=== PATIENT | male | born 1995 | race Caucasian/White ===

== ENCOUNTER 2022-09-08 19:59 | Emergency (ER) | payer MEDICAID, SELFPAY ==
[2022-09-08 20:07] VITALS: BP 124/83; PULSE 96; RESP 16; TEMP 37; O2SAT 94
--- NOTE | 2022-09-08 20:23 | ED.GENADUL_ITS ---
Discharge Plan Discharge Details Chief Complaint: PsychEval Primary Care Provider: Unknown,Unknown ED Provider: Verónica Beltran Home Meds and New Rx's Prescriptions: No Action duloxetine 30 mg capsule,delayed release(DR/EC) 30 mg PO DAILY Label Comments: TAKE 1 CAPSULE BY MOUTH ONCE DAILY ALONG WITH A 60MG CAP FOR A TOTAL DAILY DOSE OF 90MG duloxetine 60 mg capsule,delayed release(DR/EC) 60 mg PO DAILY Label Comments: TAKE 1 CAPSULE BY MOUTH ONCE DAILY estradiol 2 mg tablet 7 mg PO DAILY Label Comments: TAKE 3 & 1/2 (THREE & ONE-HALF) TABLETS BY MOUTH ONCE DAILY spironolactone 50 mg tablet 50 mg PO DAILY progesterone micronized 100 mg capsule 100 mg PO DAILY Label Comments: TAKE 1 CAPSULE BY MOUTH ONCE DAILY Medical Decision Making 09/08/222019 -- 27-year-old male who identifies as female with longstanding history of anxiety and depression presents for worsening depression over the last few months, worse since last night since being evicted from apartment now having thoughts of suicide with a plan to drown herself. Vitals within normal limits. Patient appears somewhat anxious but nontoxic. No acute findings on exam. Patient medically cleared per smart medical clearance form. We will call mental health for evaluation. 2144 -- Pt evaluated by Rios with [facility] and patient would like [facility] inpatient hospitalization. Per Rios regarding latest update from [place], there were multiple beds available in the LGBTQ unit and hopeful that she could potentially be transferred tomorrow. Therefore we will hold patient in the emergency department while awaiting placement. If patient volume increases in the emergency department, will admit to the floor while awaiting placement. Per discussion with Rios, to prevent any delays in transfer, recommend screening labs. Labs reviewed. Potassium 3.3, will replete. COVID-negative. Remainder of labs unremarkable. 09/09/22 0800 -- no issues overnight. Case endorsed to Dr. Lomax to continue to monitor while awaiting placement. TSH added this morning and pending. Medical Records Medical records reviewed: Yes I reviewed the patient's medical records. HPI General Mode of arrival: ambulatory . Date/Time Provider Initiated Documentation: 09/08/22 20:00 . Limitations to Documentation: no limitations . Information obtained by: patient . HPI Narrative: Patient is a 27-year-old male who identifies as female presents for depression for 10 years, getting progressively worse since the break-up with her girlfriend a few months ago, and much worse since last night since being evicted from her apartment. Patient states she was living in [place] up until 2 years ago and then for the past 2 years has been living in an apartment with her parents. She states it is difficult living with her mother because she can be controlling. She states she stayed in a motel with her parents last night and for the first time had thoughts of suicide with a plan. Patient states she has felt depressed and suicidal in the past but has never had a plan. She states she would drown myself in the bathtub . Patient states she has been taking her medications as prescribed but did not take her medications last night due due to the stress of being evicted. She denies any alcohol or drug use. She denies any homicidal ideation. She states she has a long history of insomnia for which she takes medications as needed. Patient states she has prescribed estradiol, progesterone and spironolactone by her breakfast host at [facility]. She states she has prescribed her duloxetine by a provider at [facility]. Related Data Home Medications Medication Instructions Recorded Confirmed duloxetine 30 mg capsule,delayed 30 mg PO DAILY 09/08/22 09/08/22 release duloxetine 60 mg capsule,delayed 60 mg PO DAILY 09/08/22 09/08/22 release estradiol 2 mg tablet 7 mg PO DAILY 09/08/22 09/08/22 progesterone micronized 100 mg 100 mg PO DAILY 09/08/22 09/08/22 capsule spironolactone 50 mg tablet 50 mg PO DAILY 09/08/22 09/08/22 Allergies Allergy/AdvReac Type Severity Reaction Status Date / Time citric acid Allergy Uncoded 09/08/22 20:25 General Stated Complaint: PsychEval LORAINE: 2 Review of Systems All systems reviewed & are unremarkable except as noted in HPI and below Constitutional Constitutional: Reports as per HPI, Denies chills and Denies fever(s) Eyes Eyes: Denies blurry vision ENT Ears, Nose, Mouth, and Throat: Denies dizziness, Denies sore throat and Denies throat swelling Cardiovascular Cardiovascular: Denies chest pain and Denies dyspnea Respiratory Respiratory: Denies cough and Denies dyspnea Gastrointestinal Gastrointestinal: Denies abdominal pain, Denies diarrhea and Denies vomiting Genitourinary Genitourinary: Denies hematuria and Denies dysuria Musculoskeletal Musculoskeletal: Denies back pain and Denies numbness Integumentary/Breasts Skin/Breast: Denies lesions and Denies rash Neurologic Neurologic: Denies dizziness, Denies localized weakness and Denies numbness Allergic/Immunologic Allergic/Immunologic: Denies throat swelling [facility] Medical History (Updated 09/08/22 @ 21:23 by Verónica Beltran DO) Anxiety Depression Insomnia Transgender man on hormone therapy Surgical History (Updated 09/08/22 @ 21:23 by Verónica Beltran DO) History of hernia repair Social History Smoking/Tobacco Use Status: Never Smoking risk assessment performed?: Yes Alcohol Intake: never Substance use type: does not use Exam Const General: cooperative, healthy appearing and no acute distress HENMT Head: normal to inspection Face and sinus: normal facial exam Eyes General: appearance normal, both eyes and all related structures Pupils: PERRL EOM: EOM intact bilaterally Neck Neck: normal visual inspection and No submandibular swelling Lymphatic: no lymphadenopathy noted Chest Chest: normal inspection of the chest and no tenderness Resp Effort & Inspection: normal respiratory effort and able to speak in complete sentences Auscultation: clear to auscultation bilaterally Cardio Rate: regular rate Rhythm: regular rhythm GI Inspection: normal to inspection Palpation: soft, not firm, not rigid and nontender Auscultation: normal bowel sounds Male General Exam: Yes normal external exam Back/Spine/Pelvis Thoracic/Lumbar Spine: thoracic and lumbar spine normal to inspection Pelvis: no pain with anterior-posterior compression Skin General skin exam: no rashes or lesions noted Neuro General: patient alert, patient awake and patient oriented x3 Cognition: normal cognition Speech: speech normal Motor: muscle tone normal throughout Sensory Exam: no sensory deficits noted Extrem General: normal to inspection, full ROM, capillary refill normal, no calf tenderness bilaterally and no edema Psych Appearance: grossly normal Mental Status: mental status grossly normal Speech and Movement: speech and movement normal Affect: normal affect Course Vital Signs Vital signs: Respiratory Effort 09/08/22 20:07 Pain Level 2 09/08/22 20:07
[2022-09-08 20:42] LABS: Bilirubin Negative (Negative); Blood Negative (Negative); Clarity Sl Cloudy (Clear); Glucose Negative (Negative); Ketones Negative (Negative); Leukocyte Esterase Negative (Negative); Nitrite Negative (Negative); Specific Gravity >= 1.030 (1.005-1.025); Urobilinogen 0.2 EU/dL (Up TO 0.2); pH 5.5 (5-8)
[2022-09-08 20:47] LABS: Bacteria Negative HPF (Negative); C & S Indicated? No; Casts Negative LPF (Negative); Crystals Negative HPF (Negative); Epithelial Cells Few HPF (Negative); Mucus Trace (Negative); RBC 0-2 HPF (0-2); WBC 0-2 HPF (0-5)
[2022-09-08 20:58] LABS: *AMPHETAMINES SCREEN URINE Negative (Negative); *BARBITURATES SCREEN URINE Negative (Negative); *BENZODIAZEPINES SCREEN URINE Negative (Negative); Cannabinoids THC Negative (Negative); Cocaine Screen,Urine Negative (Negative); METHADONE URINE SCREEN Negative (Negative); OPIATES URINE SCREEN Negative (Negative)
[2022-09-08 21:00] LABS: Tricyclic Antidepressants Negative (Negative)
--- NOTE | 2022-09-08 21:24 | PDOC.MHCN ---
Date of service: 09/08/22 Time of Service: 21:24 PHQ-9 Over the last 2 weeks, how often have you been bothered by any of the following problems? 1. Little interest or pleasure in doing things: nearly every day 2. Feeling down, depressed, or hopeless: nearly every day 3. Trouble falling or staying asleep, or sleeping too much: nearly every day 4. Feeling tired or having little energy: nearly every day 5. Poor appetite or overeating: nearly every day 6. Feeling bad about yourself - or that you are a failure or have let yourself and your family down: nearly every day 7. Trouble concentrating on things, such as reading the newspaper or watching television: more than half the days 8. Moving or speaking so slowly that other people could have noticed? - Or the opposite - being so fidgety or restless that you have been moving around a lot more than usual: not at all 9. Thoughts that you would be better off or of hurting yourself in some way: several days Total score: 21 If you checked off any problems, how difficult have these problems made it for you to do your work, take care of things at home, or get along with other people?: extremely difficult PHQ-9 Results: Positive Source: Developed by Drs. Eduardo Winston, Mayte Flores, Armando Erazo and colleagues, with an educational kellen from [employer]. Suicide Severity Rate CSSRS Have you wished you were or wished you could go to sleep and not wake up?: Yes Have you actually had any thoughts of killing yourself?: Yes CSSRS2 Have you been thinking about how you might do this?: Yes Have you had these thoughts and had some intention of acting on them?: Yes Have you started to work out or worked out the details of how to kill yourself? Do you intend to carry out this plan?: Yes CSSRS3 Have you ever done anything, started to do anything or prepared to do anything to end your life?: No CSSRS4 Was this within the past three months?: No Screening Score Total Score: 4 Screening: Positive Mental Health Emergency Note Release [facility] release signed:: No Reason for Visit SI/Housing issue/Relationship and family conflict. In the last 2 weeks has the pt presented for ES prior to today?: No Client Information Client is: New Well Housed: No,status: Homeless Unstable housing Non Suicidal Self Injury Current: No History: No Safety Risk/Harm to Self or Others Current Ideation to Harm Self or Others: Yes to self. Intent: yes, has intent. Plan: yes,has a plan. Risk: Does risk to harm exist?: yes. Access to means: No. Risk: Moderate Risk Duty to warn indicated: No Asssessment/Mental Status Appearance: Unremarkable Attitude: Cooperative Behavior: Unremarkable Speech: Normal Affect: Normal Mood: Stressed Thought process: Unremarkable Hallucinations: No Delusions: No Attention: Unremarkable Perception: Not impaired Orientation: Fully orientated Memory: Intact Insight: Fair Judgement: Fair Neurovegetative Symptoms Sleep: Decrease Appetitie: Decrease Interests: Decrease Energy: Decrease Substance Use: Do you use nicotine?: No Have you used substances in the last 7 days?: No Additional Issues: Assaultive/Threatening Behavior: No Medical Concerns: No Client engaged in active self harm w/weapon: No Threatening to run away: No Child reported abuse/neglect: No Voluntarily presenting for services: Yes Domestic violence is a concern: No Extreme Psychosis or extreme behavior is present: No Impression Goyo presented to the ED this afternoon due to intense SI with a plan to drown themself. Client's father & friend had called 911 earlier leading to a police reponse at the pt's residence, client was transported to the hospital and voluntarily presented for a crisis screening. This client reported poor sleep as a recurring issue, as well as a poor diet?if eating at all. Client's affectivity was flat througout the entire assessment, with no discernable changes in body language/tone contextually as the assessment progressed. Client was previously hospitalized once, while they haven't actively tried to take her life per their report; this client is at moderate risk for suicide as their relationship recently ended and she was also evicted from her residence this past weekend. Client is actively suicidal and does not feel they would be safe if they return to the community without seeking a higher level of care. Resources Reosurces reviewed and given:: Crisis Bed and [facility] Plan/Disposition Recommended Disposition: Hospitalization No. Person reported agreement to plan: Yes Reports/communication Outcome discussed with: ED/Personnel
[2022-09-08 22:16] LABS: Source Nasal/Nares
[2022-09-08 22:18] LABS: Abs Immature Grans 0.01 10^3/uL (0.0-0.06); Absolute Basophil Count 0.07 10^3/uL (0.0-0.2); Absolute Lymphocyte Count 2.46 10^3/uL (1.2-3.4); Absolute Monocyte Count 0.71 10^3/uL (0.1-0.8); Absolute Neutrophil Count 2.68 10^3/uL (1.2-6.7); Basophils % 1.1; Eosinophils % 3.3; HGB 13.2 g/dL (13.5-17.5); Immature Grans % 0.2; Lymphocytes % 40.1; MCH 32.1 pg (27.0-33.0); MCHC 33.8 % (32.0-36.0); MCV 95 fL (80-95); MPV 9.3 fL (8.0-11.0); Monocytes % 11.6; Neutrophils % 43.7; Platelet Count 270 10^3/uL (130-400); RBC 4.11 10^6/uL (4.36-5.78); RDW 11.9 % (11.8-14.1); RDW-SD 42.2 fL; WBC 6.13 10^3/uL (4.4-10.8)
[2022-09-08 22:30] LABS: ETHANOL BLOOD 3.2 mg/dL (<10)
[2022-09-08 22:34] LABS: ALT 11 U/L (16-63); AST 15 U/L (15-37); Albumin 3.4 g/dL (3.4-5.0); Alkaline Phosphatase 53 U/L (46-116); Anion Gap 7.1 mmol/L (3-11); BUN 17 mg/dL (7-18); Bilirubin, Total 0.3 mg/dL (0.2-1.0); CO2 26.9 mmol/L (21.0-32.0); CREATININE 0.8 mg/dL (0.70-1.30); Calcium 8.8 mg/dL (8.5-10.1); Chloride 102 mmol/L (98-107); Estimated GFR 123.63 (mL/min/1.73m2); Glucose 93 mg/dL (74-106); Potassium 3.3 mmol/L (3.5-5.1); Sodium 136 mmol/L (136-145); Total Protein 6.5 g/dL (6.4-8.2)
[2022-09-08 22:57] LABS: COVID-19 PCR Negative (Negative)
--- NOTE | 2022-09-08 23:21 | NUR.NOTE ---
Nursing Note: went to give pt potassium po, pt refused at this time.
[2022-09-08] MEDS: Potassium Chloride 20 MEQ TABCR (23:50)
--- NOTE | 2022-09-09 08:18 | NUR.NOTE ---
Nursing Note: Clayton Renny [phone]
[2022-09-09] MEDS: DULoxetine 30 MG CAP 90 MG PO (09:15)
[2022-09-09] MEDS: Estradiol 1 MG TAB 7 MG PO (09:15)
[2022-09-09] MEDS: Spironolactone 50 MG TAB PO (09:15)
[2022-09-09 09:54] LABS: TSH (W/Ref FT4) 2.79 uIU/mL (0.36-3.74)
--- NOTE | 2022-09-09 10:00 | CMSP_ITS ---
- If Service Date Differs Date of service: 09/09/22 Time of Service: 10:00 Care Management Safety Plan Status: Voluntary - Reason for Wait Reason for Wait: Inpatient Admission VOLUNTARY FOR INPATIENT PSYCHIATRIC STABILIZATION. Patient is appropriate in all interactions since arriving at [facility]; Pt has demonstrated appropriate coping and communication skills, has articulated his or her needs and concerns and is fully engaged during staff interactions. Per ED documentation: Fredy is a 27-year-old male who identifies as female with longstanding history of anxiety and depression presents for worsening depression over the last few months, worse since last night since being evicted from apartment now having thoughts of suicide with a plan to drown herself. Per [facility], [facility] have bed availability is reviewing and with potential for admission today. If there is a delay is transfer will consider admission to the floor, while awaiting inpatient psych placement. Safety plan has been established with patient, and care team, to adhere to patient goals, identify restrictions based on behavioral status, address nutrition, and determine allowed personal belongings, tools for hygiene and personal care. Determine level of activity including ambulation, level of supervision, visitors, and determine privileges based on behaviors and level of engagement by pt. SAFETY PLAN: 1. Will remain on suicide precautions. In Paper Clothes 2. Will remain in room under direct supervision of one-on-one staff at all times provided by [employer]; REZA, DIRECTOR TELEVISION NEWS cold type composing machine operator. 3. May have paper cups, plates, finger foods as well as a cardboard spoon with which to eat meals. 4. Follow [facility] Management of the Admitted Behavioral Health Patient policy. 5. Comfort bath system only, shower permitted with escort at RN discretion. 6. No personal belongings-soft items permitted at RN discretion. 7. Visitors-none at this time. 8. Activities: soft cart items approved per RN discretion. 9. Bathroom privileges with escort in the ED, available in room without limitation on M/S. 10. Phone: contact limited to family at this time, via cordless phone at RN discretion. 11. Due to VOLUNTARY status, if patient wishes to leave [facility], staff will contact [facility] Crisis Screener ([phone]) and On-Call Vendor Manager ([phone]) as soon as possible. In the event of elopement, notify [facility] Police ([phone]). Patient is currently voluntarily at [facility] and seeking inpatient admission when a bed becomes available. [facility] [employer] Truck Driver will continue seeking placement. Please contact the Senior Developer Vendor Manager ([phone]) and [facility] Concrete Mixing Truck Driver ([phone]) for any needed changes in the Safety Plan. Safety plan has been provided to interdepartmental care team.
--- NOTE | 2022-09-09 13:37 | MHPN_ITS ---
Date of service: 09/09/22 Time of Service: 11:00 PHQ-9 Over the last 2 weeks, how often have you been bothered by any of the following problems? 1. Little interest or pleasure in doing things: nearly every day 2. Feeling down, depressed, or hopeless: nearly every day 3. Trouble falling or staying asleep, or sleeping too much: nearly every day 4. Feeling tired or having little energy: nearly every day 5. Poor appetite or overeating: nearly every day 6. Feeling bad about yourself - or that you are a failure or have let yourself and your family down: nearly every day 7. Trouble concentrating on things, such as reading the newspaper or watching television: more than half the days 8. Moving or speaking so slowly that other people could have noticed? - Or the opposite - being so fidgety or restless that you have been moving around a lot more than usual: not at all 9. Thoughts that you would be better off or of hurting yourself in some way: several days Total score: 21 If you checked off any problems, how difficult have these problems made it for you to do your work, take care of things at home, or get along with other people?: extremely difficult PHQ-9 Results: Positive Source: Developed by Drs. Eduardo Winston, Mayte Flores, Armando Erazo and colleagues, with an educational kellen from [employer]. Suicide Severity Rate CSSRS Have you wished you were or wished you could go to sleep and not wake up?: Yes Have you actually had any thoughts of killing yourself?: Yes CSSRS2 Have you been thinking about how you might do this?: Yes Have you had these thoughts and had some intention of acting on them?: Yes Have you started to work out or worked out the details of how to kill yourself? Do you intend to carry out this plan?: Yes CSSRS3 Have you ever done anything, started to do anything or prepared to do anything to end your life?: No CSSRS4 Was this within the past three months?: No Screening Score Total Score: 4 Screening: Positive Mental Health Emergency Note Release [facility] release signed:: Yes Reason for Visit Client presented to [facility] ED on 09/08/22 due to increased suicidal ideations with plan to drown self in hotel room bathroom. Client's family was evicted on 09/07/22 and are currently staying in a motel provided by [employer] and [employer]. Client is seen today via zoom for re-assessment at [facility] ED while on voluntary status. In the last 2 weeks has the pt presented for ES prior to today?: No Client Information Client is: New Well Housed: No,status: Homeless Unstable housing Non Suicidal Self Injury Current: No History: yes, Client reports hx of NSSI, however would not elaborate when asked by this specification writer. Safety Risk/Harm to Self or Others Current Ideation to Harm Self or Others: Yes to self. (Client currently endorsing persistent SI with intent 04/13 and plan to drown self in bathtub. ) Intent: yes, has intent. Plan: yes,has a plan. History of suicide attempt: No history of suicide attempt reported Risk: Does risk to harm exist?: yes. Access to means: No. Risk: Moderate Risk Duty to warn indicated: No Asssessment/Mental Status Appearance: Disheveled and Poor hygiene Attitude: Cooperative Behavior: Unremarkable Speech: Normal Affect: Flat Mood: Stressed and Depressed Thought process: Unremarkable Hallucinations: No Delusions: No Attention: Unremarkable Perception: Not impaired Orientation: Fully orientated Memory: Intact Insight: Fair Judgement: Fair Neurovegetative Symptoms Sleep: Decrease Appetitie: Decrease Interests: Decrease Energy: Decrease Libido: Not applicable Substance Use: Do you use nicotine?: No Have you used substances in the last 7 days?: No Additional Issues: Assaultive/Threatening Behavior: No Medical Concerns: No Client engaged in active self harm w/weapon: No Threatening to run away: No Child reported abuse/neglect: No Voluntarily presenting for services: Yes Domestic violence is a concern: No Extreme Psychosis or extreme behavior is present: No Impression Client is a 27 y/o male that is transitioning to female and identifies as the name Dariela. Client and clients family is currently homeless after being evicted from their apartment on 09/07 and is currently staying in a motel provided by [employer] and [employer]. Client also reports that about 2 years ago they were deported from [place] after a situation with their , however when asked client would not elaborate. Client presents with symptoms most congruent to major depressive disorder as evidenced by self-report, decrease in things that they used to find enjoyment in, decrease in energy, and disorganized sleep and eating patterns. Client reports that they sleep during the day approximately 6 hours of interrupted sleep as they wake up frequently. Client reports that their appetite has diminished only eating 1 meal a day. Client reports that they have always had fleeting suicidal ideation's, however reports due to life changes the suicidal ideation's have increased and reports that they have a plan to drown themselves in the bathtub with intent 04/13. Client reports to this specification writer that they only currently have one coping skill that is beneficial which is watching YouTube. Client would benefit from inpatient treatment to decrease suicidal ideation's, learn coping skills, and medication management. Resources Reosurces reviewed and given:: [facility] Plan/Disposition Recommended Disposition: Hospitalization (Referrals faxed to [facility], [facility], , and [facility]. ) facilities contacted. Plan: Client will remain at [facility] ED on voluntary status pending admission to an inpatient facility. Referrals have been faxed to [facility], [facility], , and [facility]- there is currently not bed availability at [facility], [facility], and . [facility] is currently reviewing clients referral. Person reported agreement to plan: Yes Facilities contacted if Applicable [facility] Not accepted, (Reviewing referral) No bed available [facility] Not accepted, No bed available [facility] Not accepted, Only accepting in house referrals, [facility] Not accepted, No bed available Reports/communication Outcome discussed with: ED/Personnel (Verbal passover given to ED provider Dr. Lomax ) Final Disposition/Discharge Transportation Checklist completed and faxed: No
--- NOTE | 2022-09-09 14:20 | W.PM.HP.N ---
Date of service: 09/09/22 Time of Service: 14:21 Assessment and Plan Assessment and plan (1) Depression with suicidal ideation: Status: Acute Assessment and plan: followed by mental health with plan for inpatient psychiatric management. was medically cleared in the ED and remains medically stable with no behavioral issues. continue home medications continue safety plan instituted by mental health. discussed with DR Randhawa History of Present Illness History of Present Illness Chief Complaint: suicidal ideation Narrative: on a voluntary hold for suicidal ideation. medically cleared in the ED. plan was to drown herself in a bathtub. homeless. no behavioral issues in the ED and no inpatient bed yet available so request for move to transition unit while awaiting discharge to inpatient facility. remains medically stable, eating and drinking well with no behavioral issues. hand off and acceptance under hospitalist services. discussed with Dr Randhawa. Review of Systems All systems reviewed & are unremarkable except as noted in HPI and below Psychiatric Psychiatric: Reports suicidal ideation PFSH All Active Problems (Updated 09/09/22 @ 14:24 by Madeline Strong NP) Depression with suicidal ideation (Acute) Depression (Chronic) Medical History (Updated 09/09/22 @ 14:24 by Madeline Strong NP) Anxiety Depression Insomnia Transgender man on hormone therapy Surgical History (Updated 09/08/22 @ 21:23 by Verónica Beltran DO) History of hernia repair Social History Smoking/Tobacco Use Status: Never Smoking risk assessment performed?: Yes Alcohol Intake: never Substance use type: does not use Meds Allergies and Home Medications Allergies Allergy/AdvReac Type Severity Reaction Status Date / Time citric acid Allergy Uncoded 09/08/22 20:25 Home Medications Medication Instructions Recorded Confirmed Type duloxetine 30 mg capsule,delayed 30 mg PO DAILY 09/08/22 09/08/22 History release duloxetine 60 mg capsule,delayed 60 mg PO DAILY 09/08/22 09/08/22 History release estradiol 2 mg tablet 7 mg PO DAILY 09/08/22 09/08/22 History progesterone micronized 100 mg 100 mg PO DAILY 09/08/22 09/08/22 History capsule spironolactone 50 mg tablet 50 mg PO DAILY 09/08/22 09/08/22 History Results Labs Result diagrams: 09/08/22 22:10 09/08/22 22:10 Labs: Laboratory Results - last 24 hr 09/08/22 09/08/2223 20:35 20:35 22:10 WBC RBC Hgb Hct MCV MCH MCHC RDW Plt Count MPV Immature Gran % Neutrophils % Lymphocytes % Monocytes % Eosinophils % Basophils % Nucleated RBC % Absolute Neutrophils Absolute Lymphocytes Absolute Monocytes Absolute Eosinophils Absolute Basophils Sodium Potassium Chloride Carbon Dioxide Anion Gap BUN Creatinine Est GFR (CKD-EPI 2020) Glucose Calcium Total Bilirubin AST ALT Alkaline Phosphatase Total Protein Albumin TSH Urine Color Yellow Urine Clarity Sl Cloudy Urine pH 5.5 Ur Specific [place] >= 1.030 H Urine Protein Trace H Urine Ketones Negative Urine Blood Negative Urine Nitrite Negative Urine Bilirubin Negative Urine Urobilinogen 0.2 Ur Leukocyte Esterase Negative Urine RBC 0-2 Urine WBC 0-2 Ur Epithelial Cells Few Urine Crystals Negative Urine Bacteria Negative Urine Casts Negative Urine Mucus Trace Ur Culture Indicated? No Urine Glucose Negative Urine Opiates Screen Negative Urine Methadone Screen Negative Ur Barbiturates Screen Negative Ur Tricyclics Screen Negative Ur Amphetamines Screen Negative U Benzodiazepines Scrn Negative Urine Cocaine Screen Negative Ur THC Screen Negative Ethyl Alcohol COVID-19 Source Nasal/Nares SARS-CoV-2 (PCR) Negative 09/08/22 09/08/22 09/08/22 22:10 22:10 22:10 WBC 6.13 RBC 4.11 L Hgb 13.2 L Hct 39.0 L MCV 95 MCH 32.1 MCHC 33.8 RDW 11.9 Plt Count 270 MPV 9.3 Immature Gran % 0.2 Neutrophils % 43.7 Lymphocytes % 40.1 Monocytes % 11.6 Eosinophils % 3.3 Basophils % 1.1 Nucleated RBC % 0.0 Absolute Neutrophils 2.68 Absolute Lymphocytes 2.46 Absolute Monocytes 0.71 Absolute Eosinophils 0.20 Absolute Basophils 0.07 Sodium 136 Potassium 3.3 L Chloride 102 Carbon Dioxide 26.9 Anion Gap 7.1 BUN 17 Creatinine 0.8 Est GFR (CKD-EPI 2020) 123.63 Glucose 93 Calcium 8.8 Total Bilirubin 0.3 AST 15 ALT 11 L Alkaline Phosphatase 53 Total Protein 6.5 Albumin 3.4 TSH Urine Color Urine Clarity Urine pH Ur Specific [place] Urine Protein Urine Ketones Urine Blood Urine Nitrite Urine Bilirubin Urine Urobilinogen Ur Leukocyte Esterase Urine RBC Urine WBC Ur Epithelial Cells Urine Crystals Urine Bacteria Urine Casts Urine Mucus Ur Culture Indicated? Urine Glucose Urine Opiates Screen Urine Methadone Screen Ur Barbiturates Screen Ur Tricyclics Screen Ur Amphetamines Screen U Benzodiazepines Scrn Urine Cocaine Screen Ur THC Screen Ethyl Alcohol 3.2 COVID-19 Source SARS-CoV-2 (PCR) 09/08/22 22:10 WBC RBC Hgb Hct MCV MCH MCHC RDW Plt Count MPV Immature Gran % Neutrophils % Lymphocytes % Monocytes % Eosinophils % Basophils % Nucleated RBC % Absolute Neutrophils Absolute Lymphocytes Absolute Monocytes Absolute Eosinophils Absolute Basophils Sodium Potassium Chloride Carbon Dioxide Anion Gap BUN Creatinine Est GFR (CKD-EPI 2020) Glucose Calcium Total Bilirubin AST ALT Alkaline Phosphatase Total Protein Albumin TSH 2.79 Urine Color Urine Clarity Urine pH Ur Specific [place] Urine Protein Urine Ketones Urine Blood Urine Nitrite Urine Bilirubin Urine Urobilinogen Ur Leukocyte Esterase Urine RBC Urine WBC Ur Epithelial Cells Urine Crystals Urine Bacteria Urine Casts Urine Mucus Ur Culture Indicated? Urine Glucose Urine Opiates Screen Urine Methadone Screen Ur Barbiturates Screen Ur Tricyclics Screen Ur Amphetamines Screen U Benzodiazepines Scrn Urine Cocaine Screen Ur THC Screen Ethyl Alcohol COVID-19 Source SARS-CoV-2 (PCR) Last Vital Signs Temp 37.0 C 09/08/22 20:07 Pulse 96 H 09/08/22 20:07 Resp 16 09/08/22 20:07 BP 124/83 09/08/22 20:07 Pulse Ox 94 09/08/22 20:07 Time Spent Time spent with Patient: <40 minutes Time was spent: preparing to see the patient(eg.review tests), obtaining and/or reviewing separately otained hiistory, ordering medications,tests, procedures and indepentently interpreting results
--- NOTE | 2022-09-09 14:22 | ED.PROG_ITS ---
Date of service: 09/09/22 Time of Service: 14:22 Medical Decision Making Patient stable throughout the day. No interventions needed. Still pending placement. Will admit to [facility] [place]. Discussed the case with the hospitalist. I have extensively reviewed the treatment plan with the patient. I have addressed all patient concerns at this time. I have also discussed the plan with the admitting physician and they agree with the current assessment and plan and have agreed to assume responsibility for the patient. All parties demonstrate verbal understanding and agreement with our assessment and plan at this time. The documentation in this chart was dictated using [employer] dictation software. Please excuse any dictation errors. Discharge Plan Disposition Patient Disposition: Admit to [facility] Condition: Good Discharge Details Chief Complaint: PsychEval Clinical Impression: Depression Primary Care Provider: Unknown,Unknown ED Provider: Matteo Lomax Home Meds and New Rx's Prescriptions: No Action duloxetine 30 mg capsule,delayed release(DR/EC) 30 mg PO DAILY Label Comments: TAKE 1 CAPSULE BY MOUTH ONCE DAILY ALONG WITH A 60MG CAP FOR A TOTAL DAILY DOSE OF 90MG duloxetine 60 mg capsule,delayed release(DR/EC) 60 mg PO DAILY Label Comments: TAKE 1 CAPSULE BY MOUTH ONCE DAILY estradiol 2 mg tablet 7 mg PO DAILY Label Comments: TAKE 3 & 1/2 (THREE & ONE-HALF) TABLETS BY MOUTH ONCE DAILY spironolactone 50 mg tablet 50 mg PO DAILY progesterone micronized 100 mg capsule 100 mg PO DAILY Label Comments: TAKE 1 CAPSULE BY MOUTH ONCE DAILY
--- NOTE | 2022-09-09 15:16 | NUR.NOTE ---
Nursing Note: nurse to nurse report given to [employer] [place].
--- NOTE | 2022-09-09 16:01 | ED.PROG_ITS ---
Date of service: 09/09/22 Time of Service: 16:01 Medical Decision Making pt stable, calm and cooperative, [facility] Sign Out Sign Out Data: Sign Out Comment: Pending call for Dr. Young Last updated by Matteo Lomax DO at 09/09/22 14:58 Discharge Plan Disposition Specific Psychiatric Facility: [facility] Condition: Good Condition: Stable Discharge Details Chief Complaint: PsychEval Clinical Impression: Depression Primary Care Provider: Unknown,Unknown ED Provider: Lenin Damon Home Meds and New Rx's Prescriptions: No Action duloxetine 30 mg capsule,delayed release(DR/EC) 30 mg PO DAILY Label Comments: TAKE 1 CAPSULE BY MOUTH ONCE DAILY ALONG WITH A 60MG CAP FOR A TOTAL DAILY DOSE OF 90MG duloxetine 60 mg capsule,delayed release(DR/EC) 60 mg PO DAILY Label Comments: TAKE 1 CAPSULE BY MOUTH ONCE DAILY estradiol 2 mg tablet 7 mg PO DAILY Label Comments: TAKE 3 & 1/2 (THREE & ONE-HALF) TABLETS BY MOUTH ONCE DAILY spironolactone 50 mg tablet 50 mg PO DAILY progesterone micronized 100 mg capsule 100 mg PO DAILY Label Comments: TAKE 1 CAPSULE BY MOUTH ONCE DAILY
--- NOTE | 2022-09-11 10:29 | NUR.NOTE ---
Nursing Note: Father called asking where the patient was transferred to. Initially could not find the HIPPA and told him that we could not release information to him. After hanging up with him, I looked further and found a HIPPA form with his name on it. I called him back, apologized, and told him that she went to [facility].
== END 2022-09-09 17:58 ==
PROVIDERS: Physician Assistant; Emergency Provider Emergency Medicine
DX: F32.A Depression, unspecified (principal)
CPT/HCPCS: 80053; 80307; 87635; 99283; 99285; 80320; 81003; 81015; 84443; 85025